=== PATIENT | female | born 1990 | race Caucasian/White ===

== ENCOUNTER 2017-08-15 03:54 | Emergency (ER) | payer OTHER ==
[2017-08-15] MEDS: morphine 10 MG INJ IM (04:27)
[2017-08-15] MEDS: KETOROLAC 15 MG INJ IV (05:31)
[2017-08-15] MEDS ORDERED: BENOXINATE HCL/FLUORESCEIN SOD 5 ML OPHTH BOTH EYES (05:59)
[2017-08-15] MEDS: morphine 4 MG/ML VIAL IM (07:21)
== END 2017-08-15 08:30 | disposition home or self-care (01) ==
LOC: E/R 03:54
DX: T59.91XA Toxic effect of unspecified gases, fumes and vapors, accidental (unintentional), initial encounter (principal); L53.9 Erythematous condition, unspecified
CPT/HCPCS: 96372; 96374; 99284-25